=== PATIENT | male | born 1960 | race Hispanic/Latino ===

== ENCOUNTER 2019-10-10 12:13 | Day surgery (SDC) | payer BC ==
[~2019-10-10] VITALS: Ht 177.8 cm; Wt 85.2 kg
[2019-10-10] VITALS (8 sets, daily range): BP systolic 149–166; BP diastolic 76–87
--- NOTE | 2019-10-10 10:00 | NUR ---
preop pt laying comfortably in stretcher. pt oriented to room and call light. pt has bruises to both hands from old iv sticks. pt c/o of abdominal discomfort. applied warm blanket and pt reported it help alleviate some of the pain. will continue to monitor pt. pt instructed to call for assistance and voiced understanding
[2019-10-10 10:03] LABS: BASOPHILS % (AUTO) 0.3 % (0.0-5.0); EOSINOPHILS % (AUTO) 0.8 % (0.0-8.0); HEMATOCRIT 39.4 % (42-54); LYMPHOCYTES % (AUTO) 9.6 % (21.0-51.0); MEAN CORPUSCULAR HEMOGLOBIN 31.5 pg (27.0-33.0); MEAN CORPUSCULAR HGB CONC 34.8 g/dL (32.0-36.0); MEAN CORPUSCULAR VOLUME 90.6 fL (79-99); MONOCYTES % (AUTO) 9.4 % (3.0-13.0); NEUTROPHILS % (AUTO) 79.1 % (40.0-77.0); PLATELET COUNT (AUTO) 320 K/uL (130-400); RED BLOOD CELL COUNT(AUTO) 4.35 MIL/uL (4.50-6.20); RED CELL DISTRIBUTION WIDTH 16.2 % (11.0-15.5); WHITE BLOOD COUNT (AUTO) 7.7 K/uL (4.8-10.8)
[2019-10-10 10:16] LABS: CREATININE 0.8 mg/dL (0.5-1.5); POTASSIUM 3.8 mmol/L (3.5-5.1)
[2019-10-10 10:18] LABS: INR 1.28 (0.85-1.15); PARTIAL THROMBOPLASTIN TIME 36.7 SEC (26.3-35.5); PROTHROMBIN TIME 13.7 SEC (9.6-11.6)
[2019-10-10 10:22] LABS: BILIRUBIN,TOTAL 6.1 mg/dL (0.2-1.0); TOTAL PROTEIN, SERUM 7.9 g/dL (6.0-8.3)
--- NOTE | 2019-10-10 10:30 | NUR ---
report called jonas sarabia for radiology and informed pt having abdominal discomfort and labs. as per jonas it is up to pt it he wants to proceed with procedure today. pt stated he is able to tolerate pain and will proceed.
--- NOTE | 2019-10-10 11:00 | NUR ---
report report given to gabriela britton rn for continuation of care
[~2019-10-10 12:13] MED LIST: SODIUM CHLORIDE 0.9% 1000ML 1,000 ML IV ONE
[2019-10-10] MEDS ORDERED: FENTANYL CITRATE PF 50 MCG/1 ML 2ML VIAL ONE (13:17)
[2019-10-10] MEDS ORDERED: MIDAZOLAM HCL 1 MG/ML 2ML VIAL ONE (13:17)
--- NOTE | 2019-10-10 14:15 | NUR ---
U/S GD LIVER BX PROCEDURE PERFORMED BY DR Makayla LAGUERRE. PUNCTURE SITE RUQ AND PATIENT TOLERATED PROCEDURE WELL. SPECIMEN X 3 COLLECTED AND SENT TO LAB. END OF PROCEDURE AT 1400. FLOW SEAL INJECTED TO BIOPSY SITE AND BIOPSY NEEDLE REMOVED. DRESSING APPLIED AND NO BLEEDING NOTED. REPORT GIVEN TO Dmitry KELLEY RN AND PATIENT TRANSPORTED TO 9 VIA STRETCHER AT 1415. AAO X3 WITH NO C/O PAIN.
--- NOTE | 2019-10-10 14:15 | NUR ---
PATIENT RETURNED TO HIS ROOM VIA STRETCHER. PATIENT AAOX3, RESPIRATIONS UNLABORED, VITAL SIGNS STABLE. DRESSING TO RIGHT ABDOMEN IS DRY/INTACT.
--- NOTE | 2019-10-10 14:15 | NUR ---
PATIENT INSTRUCTED TO LIE ON HIS RIGHT SIDE FOR 2 HOURS, PATIENT VERBALIZED UNDERSTANDING.
--- NOTE | 2019-10-10 16:30 | NUR ---
DISCHARGE INSTRUCTIONS PROVIDED TO PATIENT AND PATIENT'S SISTER (LADARIUS PALM). BOTH VERBALIZE UNDERSTANDING OF INSTRUCTIONS.
--- NOTE | 2019-10-10 16:45 | NUR ---
PATIENT DISCHARGED FROM FACILITY VIA WHEELCHAIR AND ASSISTED INTO PRIVATE VEHICLE DRIVEN BY SISTER.
== END 2019-10-10 16:45 | disposition home or self-care (01) ==
LOC: DAH 12:13
PROVIDERS: ATTEND Family Medicine
DX: R16.0 Hepatomegaly, not elsewhere classified (principal); K76.89 Other specified diseases of liver; C7A.8 Other malignant neuroendocrine tumors; E66.9 Obesity, unspecified; Z98.890 Other specified postprocedural states; Z90.49 Acquired absence of other specified parts of digestive tract; Z79.899 Other long term (current) drug therapy; Z83.3 Family history of diabetes mellitus; Z82.49 Family history of ischemic heart disease and other diseases of the circulatory system; Z68.30 Body mass index [BMI] 30.0-30.9, adult; Z79.01 Long term (current) use of anticoagulants; Z86.010 Personal history of colon polyps
CPT/HCPCS: 36415; 47000; 76942; 80053; 85025; 85610; 85730; A4215; A4216; A4221; A4222; A4223 ×3; A4606; A4663; C2615; J2250; J3010; J7030; 99152; 99153